=== PATIENT | female | born 1945 | race Caucasian/White ===

== ENCOUNTER → 2016-09-14 | Outpatient (CLI) | payer MEDICARE, OTHER ==
[~2016-09-14] VITALS: Ht 172.7 cm; Wt 102.5 kg
[~2016-09-14] MED LIST: CO Q-10100 MG PO; COREG 12.5MG12.5 MG PO; CYANOCOBAL1000 MCG/1 INJ; CYMBALTA60 MG PO; ELIQUIS2.5 MG PO; FOLIC ACID 1 MG1 MG PO; LIPITOR TAB 2020 MG PO; NORCO 7.5-3251 EACH PO; NORVASC 5 MG TAB5 MG PO; PRILOSEC OTC20 MG PO
[2016-09-14 08:50] LABS: RED BLOOD COUNT 4.92 M/UL (4.00-5.10); WHITE BLOOD COUNT 5.4 K/UL (4.5-11.0)
[2016-09-14 09:10] LABS: BUN/CREATININE RATIO 18 (0-10)
== END ==
LOC: OPSV2 07:54
PROVIDERS: Orthopaedic Surgery
DX: Z01.810 Encounter for preprocedural cardiovascular examination (principal); Z01.812 Encounter for preprocedural laboratory examination; Z01.818 Encounter for other preprocedural examination; M17.12 Unilateral primary osteoarthritis, left knee; I10 Essential (primary) hypertension
CPT/HCPCS: 36415; 71020; 80048; 85025; 87077; 87081; 87086; 87186; 93005

== ENCOUNTER 2016-09-28 06:15 | Inpatient (IN) | payer MEDICARE, OTHER ==
[~2016-09-28] VITALS: Ht 172.7 cm; Wt 117.0 kg
[~2016-09-28 06:15] MED LIST changes: -ELIQUIS2.5 MG PO; -NORCO 7.5-3251 EACH PO
[2016-09-29 05:44] LABS: HEMOGLOBIN 8.4 gm/dl (12.3-15.3); RED BLOOD COUNT 2.97 M/UL (4.00-5.10); WHITE BLOOD COUNT 7.1 K/UL (4.5-11.0)
[2016-09-29 05:58] LABS: BUN/CREATININE RATIO 16 (0-10)
[2016-09-29 18:55] LABS: HEMOGLOBIN 8.9 gm/dl (12.3-15.3)
[2016-09-30 05:16] LABS: HEMOGLOBIN 8.7 gm/dl (12.3-15.3); RED BLOOD COUNT 3.05 M/UL (4.00-5.10); WHITE BLOOD COUNT 8.6 K/UL (4.5-11.0)
[2016-09-30 05:31] LABS: BUN/CREATININE RATIO 16 (0-10)
[2016-09-30] MEDS ORDERED: NORCO 7.5-3251 EACH PO (10:17)
[2016-09-30] MEDS ORDERED: ELIQUIS2.5 MG PO (10:18)
== END 2016-09-30 15:55 | disposition home health service (06) | DRG 470 ==
LOC: ZOBSOF 06:15 → M/S 06:15 → EDBD 07:45 → M/S 12:20
PROVIDERS: ADMIT Orthopaedic Surgery
PROC: 0SRD0J9 Replacement of Left Knee Joint with Synthetic Substitute, Cemented, Open Approach (ICD-10-PCS; principal; 2016-09-28 07:45)
DX: M17.12 Unilateral primary osteoarthritis, left knee (principal); I10 Essential (primary) hypertension; E78.5 Hyperlipidemia, unspecified; E53.8 Deficiency of other specified B group vitamins; G62.9 Polyneuropathy, unspecified; M71.22 Synovial cyst of popliteal space [Baker], left knee; D64.9 Anemia, unspecified; G89.29 Other chronic pain; Z83.3 Family history of diabetes mellitus; Z83.6 Family history of other diseases of the respiratory system; Z82.49 Family history of ischemic heart disease and other diseases of the circulatory system
CPT/HCPCS: 36415; 73560; 80048; 85014; 85018; 85025; 86850; 86870; 86900; 86901; 86902; 86920; 86922; 97116; 97530; 97535; C1776; J0171; J0690; J0735; J1200; J1885; J2250; J2270; J2274; J2405; J2710; J2765; J2795; J3010; J7050; J7120

== ENCOUNTER → 2021-01-30 | Outpatient (CLI) | payer MEDICARE, OTHER ==
[~2021-01-30] MED LIST changes: +ASPIRIN EC81 MG PO; +ELIQUIS2.5 MG PO; +NORCO 7.5-3251 EACH PO; +VITAMIN D31250 MCG PO
== END ==
LOC: KOH-I 14:23
DX: Z01.818 Encounter for other preprocedural examination (principal); M19.011 Primary osteoarthritis, right shoulder; R93.6 Abnormal findings on diagnostic imaging of limbs; M25.411 Effusion, right shoulder
CPT/HCPCS: 73200

== ENCOUNTER → 2021-02-28 | Outpatient (CLI) | payer MEDICARE, OTHER ==
[~2021-02-28] MED LIST changes: +VITAMIN D3125 MCG PO
[2021-02-28 10:24] LABS: HEMOGLOBIN 13.1 gm/dl (12.3-15.3); RED BLOOD COUNT 4.51 M/UL (4.00-5.10); WHITE BLOOD COUNT 6.1 K/UL (4.5-11.0)
== END ==
LOC: EDSTATUS 09:00 → OPSV2 09:00
PROVIDERS: Orthopaedic Surgery
DX: Z01.818 Encounter for other preprocedural examination (principal); M19.011 Primary osteoarthritis, right shoulder
CPT/HCPCS: 36415; 80048; 85027; 93005

== ENCOUNTER → 2021-03-13 | Day surgery (SDC) | payer MEDICARE, OTHER ==
[~2021-03-13] MED LIST changes: +CYCLOBENZAPRINE10 MG PO; +ENDOCET 7.5-321 EACH PO; +ZOFRAN4 MG PO
== END | disposition home or self-care (01) ==
LOC: OR 05:22
DX: M19.011 Primary osteoarthritis, right shoulder (principal); I10 Essential (primary) hypertension; E78.5 Hyperlipidemia, unspecified; K21.9 Gastro-esophageal reflux disease without esophagitis; Z79.899 Other long term (current) drug therapy; Z20.822 Contact with and (suspected) exposure to COVID-19
CPT/HCPCS: 73020; C1713; C1776; J0690; J1100; J2001; J2250; J2405; J2704; J2710; J2795; J3010; J3370; J7120

== ENCOUNTER 2021-12-02 21:19 | Emergency (ER) | payer MEDICARE, OTHER ==
[2021-12-02 21:42] LABS: HEMOGLOBIN 12.2 gm/dl (12.3-15.3); RED BLOOD COUNT 4.34 M/UL (4.00-5.10); WHITE BLOOD COUNT 5.3 K/UL (4.5-11.0)
[2021-12-02 22:23] LABS: BUN/CREATININE RATIO 15 (0-10)
== END 2021-12-02 22:53 | disposition short-term general hospital (02) ==
LOC: ER1 21:19
PROVIDERS: Family Medicine
DX: I63.10 Cerebral infarction due to embolism of unspecified precerebral artery (principal); I10 Essential (primary) hypertension; Z51.81 Encounter for therapeutic drug level monitoring
CPT/HCPCS: 70450; 71045; 80053; 82550; 82553; 82962; 84484; 85025; 85610; 85730; 93005; 96374; 99285; J2997